=== PATIENT | female | born 1995 | race African-American/Black ===

== ENCOUNTER 2017-05-16 16:32 | Emergency (ER) | payer MEDICAID, OTHER ==
[~2017-05-16] VITALS: Ht 152.4 cm; Wt 40.9 kg
[~2017-05-16 16:32] MED LIST: IBUP600 PO; PERI8.6T PO; PRENCAP10 PO; TRI-TAB PO
[2017-05-16 16:34] VITALS: BP 108/59; PULSE 88; RESP 14; TEMP 98.2; O2SAT 98
--- NOTE | 2017-05-16 18:35 | PD ---
HPI Chief Complaint: Abdominal Pain Time Seen by Provider: 18:34 Travel History International Travel<30 days: No Contact w/Intl Traveler<30days: No Traveled to known affect area: No History of Present Illness HPI 21-year-old female came to the emergency room with history of vague abdominal pain that she points to the entire abdomen, nausea and dyspepsia for past 1 month. Patient also says that she has been having issues with her mother who was trying to get her, her child and her boyfriend out of the house. She feels depressed. She has history of depression and was given medication list October. She took it only for one month and felt like it was making things worse and hence she stopped taking it. She is not suicidal but thinks that her current physical condition may have to do with her depression status. Upon asking patient says she has not lost any weight. Vital signs otherwise stable. There was blood work initiated in triage. No aggravating or relieving factors. PFSH Past Medical History Narrative Medical List of her past medical, surgical, social and family history is reviewed from the nursing note. ?: Unknown Social History Alcohol Use: No Tobacco Use: No Allergies-Medications (Allergen,Severity, Reaction): Coded Allergies: No Known Allergies (Unverified Adverse Reaction, Unknown, 05/16/17) Comments No known drug allergies. Reported Meds & Prescriptions Reported Meds & Active Scripts Active Omeprazole 40 Mg Cap 40 Mg PO DAILY Narrative Medication List of her home medications reviewed from the nursing note. Review of Systems Except as stated in HPI: all other systems reviewed are Neg Gastrointestinal: Positive: Nausea, Abdominal Pain Physical Exam Narrative GENERAL: Awake, alert, no obvious distress SKIN: Focused skin assessment warm/dry. HEAD: Atraumatic. Normocephalic. EYES: Pupils equal and round. No scleral icterus. No injection or drainage. ENT: No nasal bleeding or discharge. Mucous membranes pink and moist. NECK: Trachea midline. No JVD. CARDIOVASCULAR: Regular rate and rhythm. No murmur appreciated. RESPIRATORY: No accessory muscle use. Clear to auscultation. Breath sounds equal bilaterally. GASTROINTESTINAL: Abdomen soft, non-tender, nondistended. Hepatic and splenic margins not palpable. MUSCULOSKELETAL: No obvious deformities. No clubbing. No cyanosis. No edema. NEUROLOGICAL: Awake and alert. No obvious cranial nerve deficits. Motor grossly within normal limits. Normal speech. PSYCHIATRIC: Appropriate mood and affect; insight and judgment normal. Data Data Last Documented VS Vital Signs Date Time Temp Pulse Resp B/P (MAP) Pulse Ox O2 Delivery O2 Flow Rate FiO2 05/16/17 21:26 05/16/17 19:15 66 14 100 05/16/17 16:34 98.2 Orders Orders Complete Blood Count With Diff (05/16/17 16:50) Comprehensive Metabolic Panel (05/16/17 16:50) Lipase (05/16/17 16:50) Urinalysis - C+S If Indicated (05/16/17 16:50) Ed Urine Pregnancytest Poc (05/16/17 16:50) Us Abdomen Gallbladder (05/16/17 ) Ed Discharge Order (05/16/17 20:51) Labs Laboratory Tests Test 05/16/17 18:25 White Blood Count 6.4 TH/MM3 Red Blood Count 5.23 MIL/MM3 Hemoglobin 12.8 GM/DL Hematocrit 39.3 % Mean Corpuscular Volume 75.2 FL Mean Corpuscular Hemoglobin 24.5 PG Mean Corpuscular Hemoglobin Concent 32.6 % Red Cell Distribution Width 15.6 % Platelet Count 281 TH/MM3 Mean Platelet Volume 8.6 FL Neutrophils (%) (Auto) 54.2 % Lymphocytes (%) (Auto) 36.2 % Monocytes (%) (Auto) 6.0 % Eosinophils (%) (Auto) 2.3 % Basophils (%) (Auto) 1.3 % Neutrophils # (Auto) 3.5 TH/MM3 Lymphocytes # (Auto) 2.3 TH/MM3 Monocytes # (Auto) 0.4 TH/MM3 Eosinophils # (Auto) 0.1 TH/MM3 Basophils # (Auto) 0.1 TH/MM3 CBC Comment DIFF FINAL Differential Comment Urine Color YELLOW Urine Turbidity CLEAR Urine pH 6.5 Urine Specific [place] 1.024 Urine Protein NEG mg/dL Urine Glucose (UA) NEG mg/dL Urine Ketones NEG mg/dL Urine Occult Blood NEG Urine Nitrite NEG Urine Bilirubin NEG Urine Urobilinogen 4.0 MG/DL Urine Leukocyte Esterase NEG Urine RBC LESS THAN 1 /hpf Urine WBC LESS THAN 1 /hpf Urine Mucus FEW /lpf Microscopic Urinalysis Comment CULT NOT INDICATED Blood Urea Nitrogen 17 MG/DL Creatinine 0.94 MG/DL Random Glucose 65 MG/DL Total Protein 8.0 GM/DL Albumin 4.2 GM/DL Calcium Level 9.2 MG/DL Alkaline Phosphatase 65 U/L Aspartate Amino Transf (AST/SGOT) 18 U/L Alanine Aminotransferase (ALT/SGPT) 16 U/L Total Bilirubin 1.2 MG/DL Sodium Level 139 MEQ/L Potassium Level 3.8 MEQ/L Chloride Level 108 MEQ/L Carbon Dioxide Level 25.0 MEQ/L Anion Gap 6 MEQ/L Estimat Glomerular Filtration Rate 90 ML/MIN Lipase 147 U/L [facility] Medical Decision Making Medical Screen Exam Complete: Yes Emergency Medical Condition: Yes Medical Record Reviewed: Yes Differential Diagnosis Acute gastritis, acute cholecystitis, acute pancreatitis Narrative Course 8:53 PM blood test results of back and bilirubin was slightly elevated. Rest of the blood test result and UA were within normal limits. Patient's was negative. I ordered an ultrasound of the gallbladder which has been read as negative at this point. I screened to the patient that since her depression is not a crisis situation at this point it's up to her whether she wants to stay overnight be seen by psychiatrist sometime in the morning or tomorrow or prefer not to wait and just go home. Patient chose to go home at this point. I 'm comfortable discharging her. I've given her advised to trying to find an outpatient psychiatrist to follow-up. She should return if her condition worsens. Patient has expressed her understanding. Procedures EKG Prior to Arrival: No Diagnosis Primary Impression: Acute gastritis Qualified Codes: K29.00 - Acute gastritis without bleeding Additional Impression: Depression Qualified Codes: F32.9 - Major depressive disorder, single episode, unspecified Referrals: Primary Care Physician Additional Instructions: Please return to the ER if condition worsens or any other new concerns. You must come to the emergency room immediately if you are having any suicidal thoughts or call for help. Take the medication Med/Other Pt SpecificInfo: Prescription(s) given Scripts Omeprazole (Omeprazole) 40 Mg Cap 40 MG PO DAILY, #30 CAP 0 Refills Prov: Hipolito Andersen MD 05/16/17 Disposition: 01 DISCHARGE HOME Condition: Stable Hipolito Andersen MD May 16, 2017 18:35
[2017-05-16 19:15] VITALS: BP 93/64; PULSE 66; RESP 14; O2SAT 100
[2017-05-16 19:23] LABS: AUTOMATED NEUTROPHIL # 3.5 TH/MM3 (1.8-7.7); BASOPHIL # 0.1 TH/MM3 (0-0.2); BASOPHIL % 1.3 % (0.0-2.0); EOSINOPHIL # 0.1 TH/MM3 (0-0.4); EOSINOPHIL % 2.3 % (0.0-4.0); HEMATOCRIT 39.3 % (35.0-46.0); HEMOGLOBIN 12.8 GM/DL (11.6-15.3); LYMPH % 36.2 % (9.0-44.0); LYMPHOCYTE # 2.3 TH/MM3 (1.0-4.8); MEAN CELL VOLUME 75.2 FL (80.0-100.0); MEAN CORPUSCULAR HEMOGLOBIN 24.5 PG (27.0-34.0); MEAN CORPUSCULAR HGB CONC 32.6 % (32.0-36.0); MEAN PLATELET VOLUME 8.6 FL (7.0-11.0); MONOCYTE # 0.4 TH/MM3 (0-0.9); NEUT % 54.2 % (16.0-70.0); PLATELET COUNT 281 TH/MM3 (150-450); RED BLOOD COUNT 5.23 MIL/MM3 (4.00-5.30); RED CELL DISTRIBUTION WIDTH 15.6 % (11.6-17.2); WHITE BLOOD COUNT 6.4 TH/MM3 (4.0-11.0)
[2017-05-16 19:24] LABS: ALBUMIN 4.2 GM/DL (3.4-5.0); BLOOD UREA NITROGEN 17 MG/DL (7-18); CALCIUM 9.2 MG/DL (8.5-10.1); CHLORIDE 108 MEQ/L (98-107); CREATININE 0.94 MG/DL (0.50-1.00); GLOMERULAR FILTRATION RATE 90 ML/MIN (>89); GLUCOSE,RANDOM 65 MG/DL (74-106); SODIUM (NA) 139 MEQ/L (136-145)
[2017-05-16 19:25] LABS: BILIRUBIN, URINE NEG (NEG); BLOOD, URINE NEG (NEG); GLUCOSE,URINE NEG (NEG); KETONE, URINE NEG (NEG); MUCUS URINE FEW /lpf (OCC); NITRITE,URINE NEG (NEG); PH, URINE 6.5 (5.0-8.5); URINE COLOR YELLOW (YELLW/STRAW); URINE LEUKOCYTE ESTERASE NEG (NEG)
[2017-05-16 19:26] LABS: AST (GOT) 18 U/L (15-37)
[2017-05-16 19:29] LABS: ALKALINE PHOSPHATASE 65 U/L (45-117); ALT (GPT) 16 U/L (10-53); TOTAL BILIRUBIN ADULT 1.2 MG/DL (0.2-1.0)
--- NOTE | 2017-05-16 20:30 | RADRPT ---
EXAM DATE/TIME: 05/16/2017 19:59 [facility] COMPARISON: No previous studies available for comparison. INDICATIONS : Right upper quadrant pain. MEDICAL HISTORY : None. SURGICAL HISTORY : None. ENCOUNTER: Initial ACUITY: 4-6 days PAIN SCORE: 7/10 LOCATION: Right upper quadrant MEASUREMENTS: LIVER: 12.3 cm length COMMON DUCT: 2 mm RIGHT KIDNEY: 7.2 x 3.6 x 3.3 cm FINDINGS: LIVER: Normal echotexture without focal lesion or ductal dilatation. COMMON DUCT: No intraluminal mass or stone visualized. GALLBLADDER: Contains no stones, demonstrates no wall thickening or pericholecystic fluid. PANCREAS: The visualized portions are within normal limits. RIGHT KIDNEY: No evidence of hydronephrosis, stone, or mass. CONCLUSION: Normal ultrasound appearance of the gallbladder and right upper quadrant. Tu Stuart MD on May 16, 2017 at 20:28 Board Certified Radiologist. This report was verified electronically.
[2017-05-16] MEDS ORDERED: OMEP40CA2 PO (20:56)
== END 2017-05-16 21:38 | disposition home or self-care (01) ==
LOC: NEPD 16:32
DX: K29.00 Acute gastritis without bleeding (principal); F32.9 Major depressive disorder, single episode, unspecified
CPT/HCPCS: 76705; 80053; 81001; 83690; 84703; 85025; 99284

== ENCOUNTER 2017-06-29 00:34 | Emergency (ER) | payer MEDICAID ==
[~2017-06-29] VITALS: Ht 152.4 cm; Wt 40.0 kg
[~2017-06-29 00:34] MED LIST changes: -IBUP600 PO; +OMEP40CA2 PO; -PERI8.6T PO; -PRENCAP10 PO; -TRI-TAB PO
[2017-06-29 00:47] VITALS: BP 106/55; PULSE 82; RESP 16; TEMP 98.6; O2SAT 100
--- NOTE | 2017-06-29 01:54 | RADRPT ---
EXAM DATE/TIME: 06/29/2017 01:13 [facility] COMPARISON: No previous studies available for comparison. INDICATIONS : Right knee pain from bending and twisting. MEDICAL HISTORY : None. SURGICAL HISTORY : None. ENCOUNTER: Initial ACUITY: 1 day PAIN SCORE: 10/10 LOCATION: Right knee FINDINGS: Four view examination of the right knee demonstrates no evidence of fracture or dislocation. Bony mi neralization is normal. The articular surfaces are intact. The suprapatellar soft tissues have a no rmal configuration. CONCLUSION: Negative trauma study. Desmond Cardona MD on June 29, 2017 at 1:26 Board Certified Radiologist. This report was verified electronically.
--- NOTE | 2017-06-29 02:44 | PD ---
HPI Chief Complaint: Injury Time Seen by Provider: 02:36 Travel History International Travel<30 days: No Contact w/Intl Traveler<30days: No Traveled to known affect area: No History of Present Illness HPI 21-year-old black female presents emergent department with complains of right knee pain. She states that she was bending into the car this evening and felt her right kneecap slide medially. She states that she has strained her leg and the knee Straightened back out. She states that this is never happened in the past. Pain is mild. She denies any numbness or tingling. Worsened by bending. Relief with extension of the leg. PFSH Past Medical History Medical History: Denies Significant Hx Diminished Hearing: No Tetanus Vaccination: < 5 Years Influenza Vaccination: Yes ?: Not Past Surgical History Surgical History: No Previous Surgery Social History Alcohol Use: No Tobacco Use: No Substance Use: No Allergies-Medications (Allergen,Severity, Reaction): Coded Allergies: No Known Allergies (Unverified Adverse Reaction, Unknown, 05/16/17) Reported Meds & Prescriptions Reported Meds & Active Scripts Active Omeprazole 40 Mg Cap 40 Mg PO DAILY Review of Systems Except as stated in HPI: all other systems reviewed are Neg General / Constitutional: No: Fever Eyes: No: Visual changes HENT: No: Headaches Cardiovascular: No: Chest Pain or Discomfort Respiratory: No: Shortness of Breath Gastrointestinal: No: Abdominal Pain Genitourinary: No: Dysuria Musculoskeletal: Positive: Arthralgias, Pain, No: Myalgias, Limited ROM, Weakness, Cramping, Edema Skin: No Rash Neurologic: No: Weakness Psychiatric: No: Depression Endocrine: No: Polydipsia Hematologic/Lymphatic: No: Easy Bruising Physical Exam Narrative GENERAL: Well-developed, well-nourished in no acute distress. Nontoxic appearing. HEAD: Normocephalic, atraumatic. EYES: Pupils equal round and reactive. Extraocular motions intact. No scleral icterus. No injection or drainage. ENT: TMs clear without erythema. The external auditory canals clear. Nose: clear . Posterior pharynx is pink and moist. No tonsillar edema or exudate. Uvula midline. Airway patent. NECK: Trachea midline.Supple, nontender, moves head freely. No central bony tenderness or spasm. CARDIOVASCULAR: Regular rate and rhythm without murmurs, gallops, or rubs. RESPIRATORY: Clear to auscultation. Breath sounds equal bilaterally. No wheezes , rales, or rhonchi. GASTROINTESTINAL: Abdomen soft, non-tender, nondistended. No hepato-splenomegaly , or palpable masses. No guarding. EXTREMITIES: No clubbing, cyanosis, or edema. No joint tenderness, effusion, or edema noted. Examination the right lower extremity reveals some mild soft tissue tenderness around the patella. The patella is tracking centrally. There is no obvious dislocation. No joint effusion. Patient is able to extend and flex her knee freely. No anterior posterior draw. No medial lateral collateral ligament instability. No pain in the hip, ankle or foot. Intact sensation with good pulses. BACK: Nontender without deformity or crepitance. No flank tenderness. Data Data Last Documented VS Vital Signs Date Time Temp Pulse Resp B/P (MAP) Pulse Ox O2 Delivery O2 Flow Rate FiO2 06/29/17 00:47 98.6 82 16 106/55 (72) 100 Room Air Orders Orders Knee, Complete (4vws) (06/29/17 ) Ice/Cold Pack (06/29/17 02:39) Splint Or Brace Apply/Monitor (06/29/17 02:39) Naproxen (Naprosyn) (06/29/17 02:45) Ed Discharge Order (06/29/17 02:40) [facility] Medical Decision Making Medical Screen Exam Complete: Yes Emergency Medical Condition: Yes Medical Record Reviewed: Yes Interpretation(s) Right knee: Negative for acute fracture. No dislocation. No joint effusion. Differential Diagnosis MDM: High Differential diagnoses: Fracture, sprain, strain, dislocation, contusion, neurovascular injury, subluxed patella Narrative Course The patient has subluxed her patella and has reduced it spontaneously. Patient is given Naprosyn 500 mg by mouth and an Arvin wrap. X-ray negative. Diagnosis Primary Impression: Lateral subluxation of right patella, initial encounter Patient Instructions: General Instructions Additional Instructions: Rest. Elevation. Ice packs for the next 3 days. Arvin wrap weight-bearing as tolerated. Medications as directed Follow-up with an orthopedist or your doctor in one week. Return to the ER if any problems Med/Other Pt SpecificInfo: Prescription(s) given Disposition: 01 DISCHARGE HOME Condition: Stable Rigo Ruiz Jun 29, 2017 02:44
[2017-06-29] MEDS ORDERED: DICL50TA3 PO (02:45)
[2017-06-29] MEDS ORDERED: NAPROXEN 500 MG TAB PO ONE (02:45)
== END 2017-06-29 03:05 | disposition home or self-care (01) ==
LOC: NEPD 00:34
DX: S83.011A Lateral subluxation of right patella, initial encounter (principal); X50.1XXA Overexertion from prolonged static or awkward postures, initial encounter; Y92.810 Car as the place of occurrence of the external cause; Z79.899 Other long term (current) drug therapy
CPT/HCPCS: 73564; 99283

== ENCOUNTER 2017-09-30 09:26 | Emergency (ER) | payer MEDICAID, OTHER ==
[~2017-09-30] VITALS: Ht 152.4 cm; Wt 38.6 kg
[~2017-09-30 09:26] MED LIST changes: +DICL50TA3 PO
[2017-09-30 09:34] VITALS: BP 104/55; PULSE 75; RESP 18; TEMP 98.8; O2SAT 100
--- NOTE | 2017-09-30 10:50 | PD ---
HPI Chief Complaint: Musculoskeletal Complaint Time Seen by Provider: 09:47 Travel History International Travel<30 days: No Contact w/Intl Traveler<30days: No Traveled to known affect area: No History of Present Illness HPI The patient is a 22-year-old female who presents to the emergency department for right knee pain. The patient states she thought she dislocated her patella on the right knee over 1 month ago. The patient was seen at [facility] and was referred to an outpatient orthopedist. The patient saw an orthopedist at that time who performed an outpatient MRI. The patient does not know the results of the MRI. However, she continues to have pain located over the medial inferior aspect of the right knee which occasionally radiates up to the right hip. She denies any acute trauma to the affected area but does note occasionally the pain is exacerbated by ambulation. She denies any significant edema over the affected area denies any redness or discoloration over the affected leg. The patient denies any acute trauma to the affected area and denies any associated fever, chills, or sweats. PFSH Past Medical History Anxiety: Yes Depression: Yes Diminished Hearing: No Psychiatric: Yes Tetanus Vaccination: > 5 Years Influenza Vaccination: No ?: Not LMP: 04/29/17 : 1 Para: 1 Past Surgical History Surgical History: No Previous Surgery Social History Alcohol Use: No Tobacco Use: No Substance Use: No Allergies-Medications (Allergen,Severity, Reaction): Coded Allergies: No Known Allergies (Verified Adverse Reaction, Unknown, 09/30/17) Reported Meds & Prescriptions Reported Meds & Active Scripts Active No Active Prescriptions or Reported Medications Review of Systems Except as stated in HPI: all other systems reviewed are Neg General / Constitutional: No: Fever, Chills Cardiovascular: No: Chest Pain or Discomfort Respiratory: No: Shortness of Breath Gastrointestinal: No: Nausea, Vomiting Musculoskeletal: Positive: Arthralgias, Pain, No: Limited ROM, Edema Skin: No Rash Neurologic: No: Paresthesia, Sensory Disturbance Physical Exam Narrative GENERAL: Awake, alert, pleasant 22-year-old female who appears his stated age and is in no acute respiratory distress. SKIN: Focused skin assessment warm/dry. HEAD: Atraumatic. Normocephalic. EYES: No injection or drainage. ENT: No nasal bleeding or discharge. Mucous membranes pink and moist. NECK: Trachea midline. No JVD. CARDIOVASCULAR: Regular rate and rhythm. No murmur appreciated. RESPIRATORY: No accessory muscle use. Clear to auscultation. Breath sounds equal bilaterally. MUSCULOSKELETAL: No obvious deformities. No clubbing. No cyanosis. No edema. Full range of motion with flexion of the right hip and flexion extension of the right knee. Patella is midline on the right. Positive right dorsalis pedal pulse. No tenderness upon palpation of the tibial plateau. No bony deformity noted. No tenderness of the right lateral hip. NEUROLOGICAL: Awake and alert. No obvious cranial nerve deficits. Motor grossly within normal limits. Normal speech. PSYCHIATRIC: Appropriate mood and affect; insight and judgment normal. Data Data Last Documented VS Vital Signs Date Time Temp Pulse Resp B/P (MAP) Pulse Ox O2 Delivery O2 Flow Rate FiO2 09/30/17 09:49 77 16 100 Room Air 09/30/17 09:34 98.8 104/55 (71) Orders Orders Femur (Ap & Lat/2vws) (09/30/17 ) MDM Medical Decision Making Medical Screen Exam Complete: Yes Emergency Medical Condition: Yes Medical Record Reviewed: Yes Interpretation(s) Last Impressions Femur X-Ray 09/30/17 0000 Signed Impressions: CONCLUSION: No acute findings. Differential Diagnosis Differential diagnosis includes meniscal injury, sprain, strain, occult fracture , back pain with radiculopathy, femur fracture, osteochondroma, sarcoma. Narrative Course An x-ray of the right femur was obtained. We attempted to obtain results of the patient's outpatient MRI that was performed at [facility] outpatient imaging center. X-ray of the patient's right femur reveals no acute pathology. No evidence of fracture. I did receive the patient's MRI report for MRI of the knee without contrast on the right, showed focal subcutaneous edema at the anterior medial aspect of the knee likely representing a soft tissue contusion, no significant internal derangement of the right knee. No evidence of meniscal or ligamentous injury. The patient has had a negative MRI except for focal subcutaneous edema and a negative x-ray. She is advised to follow up with her orthopedic surgeon. Diagnosis Primary Impression: Right knee pain Qualified Codes: M25.561 - Pain in right knee Patient Instructions: General Instructions Additional Instructions: Follow-up with your orthopedic surgeon. Tylenol and/or Motrin as needed for pain. Activity as tolerated. Ice the affected area as needed. Scripts No Active Prescriptions or Reported Meds Disposition: 01 DISCHARGE HOME Condition: Stable Cornelio Virgen MD Sep 30, 2017 10:50
--- NOTE | 2017-09-30 12:25 | RADRPT ---
EXAM DATE: 09/30/2017 11:09 AM EDT AGE/SEX: 22 years / Female INDICATIONS: Right knee shoot pain to her right hip. CLINICAL DATA: This is the patient's initial encounter. Patient reports that signs and symptoms have been present for 1 day and indicates a pain score of 10/10. MEDICAL/SURGICAL HISTORY: . right knee dislocation 2 mos ago. No known trauma None. COMPARISON: No prior exams available for comparison. FINDINGS: Bony structures are intact and in normal alignment. Osseous density is normal. Soft tissues are unre markable. No radiopaque foreign bodies seen. CONCLUSION: No acute findings. Electronically signed by: Rigo Ordaz MD 09/30/2017 12:24 PM EDT
== END 2017-09-30 13:28 | disposition home or self-care (01) ==
LOC: NEPC 09:26
DX: M25.561 Pain in right knee (principal)
CPT/HCPCS: 73552; 99283